=== PATIENT | male | born 1950 | race Caucasian/White ===

== ENCOUNTER → 2024-03-09 | Outpatient (CLI) | payer MEDICARE ==
--- NOTE | 2024-03-09 10:11 | CT ---
EXAMINATION TYPE: CT chest wo con CT DLP: 472.3 mGycm, Automated exposure control for dose reduction was used. DATE OF EXAM: 03/09/2024 10:04 AM COMPARISON: None CLINICAL INDICATION:Male, 73 years old with history of R05.3 CHRONIC COUGH; PHH, cough for 7 weeks TECHNIQUE: Multiple axial images were obtained through the chest without IV contrast. Lack of IV or o ral contrast limits evaluation of solid and hollow organ viscera. . Coronal and sagittal reformats re viewed. FINDINGS: LUNGS/ PLEURA: No pleural effusion, pneumothorax, or focal consolidation. Minimal linear scarring and /or atelectasis within the left lower lobe. No evidence for honeycombing or architectural distortion. No emphysematous change. No suspicious pulmonary nodule or mass. AIRWAY: Patent and unremarkable.. HEART: Size within normal limits.No pericardial effusion. Small coronary artery calcifications. MEDIASTINUM: No gross evidence of adenopathy. VASCULATURE: No aortic aneurysm. MUSCULOSKELETAL: Mild disc degeneration changes are present throughout the thoracolumbar spine. No ac ashtyn osseous abnormality. SOFT TISSUES/LYMPH NODES: Unremarkable. LOWER NECK: No significant findings. UPPER ABDOMEN: No significant findings. IMPRESSION: No acute thoracic process. [facility], , 03/09/2024 10:09 AM
== END | disposition home or self-care (01) ==
LOC: RADCTMAIN 09:41
PROVIDERS: ATTEND Emergency Medicine
DX: R05.3 Chronic cough (principal)
CPT/HCPCS: 71250